=== PATIENT | male | born 1965 | race Caucasian/White ===

== ENCOUNTER 2018-07-04 20:15 | Emergency (ER) | payer OTHER ==
[~2018-07-04] VITALS: Ht 190.5 cm; Wt 121.1 kg
== END 2018-07-04 21:10 | disposition home or self-care (01) ==
LOC: FSED 20:15
DX: Z20.2 Contact with and (suspected) exposure to infections with a predominantly sexual mode of transmission (principal); Z20.09 Contact with and (suspected) exposure to other intestinal infectious diseases; I10 Essential (primary) hypertension; B15.9 Hepatitis A without hepatic coma
CPT/HCPCS: 99282